=== PATIENT | female | born 1990 | race Caucasian/White ===

== ENCOUNTER 2020-07-01 10:42 | Emergency (ER) | payer OTHER ==
--- NOTE | 2020-07-01 10:53 | ER Document Report ---
ED Medical Screen (RME) - General Chief Complaint: Other Stated Complaint: BODY TEMPERATURE POST SURGERY Time Seen by Provider: 07/01/20 10:49 Mode of Arrival: Wheelchair Information source: Patient Notes: 30-year-old female presents to ED for bilateral labial tear repair at [place]. 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 She states her last menstrual period was June 06 she states at home her temperature was 95.1 we did a oral temperature in the emergency room it was 98.6 vital signs are stable patient is alert oriented respirations regular nonlabored speaking in full sentences. She states she does not smoke drink or use any drugs. She is in a lot of pain sitting up. She states she is not supposed to be sitting at the angle she is at right now due to these surgeries. I have greeted and performed a rapid initial assessment of this patient. A comprehensive ED assessment and evaluation of the patient, analysis of test results and completion of medical decision making process will be conducted by an additional ED providers.
[2020-07-01] MEDS ORDERED: NORMAL SALINE 500 ML IV ONE (10:55)
--- NOTE | 2020-07-01 11:30 | ER Document Report ---
ED General - General Chief Complaint: Post Surgical Pain Stated Complaint: BODY TEMPERATURE POST SURGERY Time Seen by Provider: 07/01/20 10:49 Mode of Arrival: Wheelchair - HPI Notes: 30-year-old female with past medical history to the emergency department with mom with complaints of possible hypothermia, dizziness, lightheadedness that began this morning. She had bilateral labral tears to her hips that were repaired by Dr. Verdugo at [place] on June 26. She states that she has been doing okay. She states that her pain is only minimally controlled by Roxicodone [address] Verdugo wrote for her. She tested negative for COVID- 19 prior to the procedure. She states that her mom has been monitoring her temperature for any fevers. Today she did not have a temperature but her mom measured a temperature of 95.1. The patient also started to feel lightheaded and shaky. Mom does report that she did take her temperature about an hour later and it had come up to 98. They did call the orthopedist about this and was advised to come to the emergency department for further evaluation. - Related Data Allergies/Adverse Reactions: hydromorphone [From Dilaudid] Allergy (Verified 07/01/20 13:14) Past Medical History - General Information source: Patient - Social History Smoking Status: Never Smoker Family History: Reviewed & Not Pertinent Past Surgical History: Reports: Hx Orthopedic Surgery Review of Systems - Review of Systems Constitutional: denies: Chills, Fever EENT: No symptoms reported Cardiovascular: Dizziness, Lightheaded. denies: Chest pain, Palpitations Respiratory: denies: Cough, Short of breath Gastrointestinal: denies: Abdominal pain, Diarrhea, Nausea, Vomiting Genitourinary: No symptoms reported Female Genitourinary: No symptoms reported Musculoskeletal: See HPI, Joint pain Skin: No symptoms reported Neurological/Psychological: No symptoms reported -: Yes All other systems reviewed and negative Physical Exam - Vital signs Vitals: Temp Pulse Resp BP Pulse Ox 98.6 F 121 H 20 136/73 H 100 07/01/20 10:47 07/01/20 10:47 07/01/20 10:47 07/01/20 10:47 07/01/20 10:47 Interpretation: Normal - Notes Notes: PHYSICAL EXAMINATION: GENERAL: Well-appearing, well-nourished and in moderate pain distress; she appears uncomfortable on the stretcher; noted tachycardia upon arrival HEAD: Atraumatic, normocephalic. EYES: Pupils equal round and reactive to light, extraocular movements intact, sclera anicteric, conjunctiva are normal. ENT: nares patent, oropharynx clear without exudates. Moist mucous membranes. NECK: Normal range of motion, supple without lymphadenopathy LUNGS: Breath sounds clear to auscultation bilaterally and equal. No wheezes rales or rhonchi. HEART: Regular rate and rhythm without murmurs ABDOMEN: Soft, nontender, normoactive bowel sounds. No guarding, no rebound. No masses appreciated. EXTREMITIES: There is tenderness to palpation to bilateral hips. There are incisions laterally on bilateral hips. Incisions appear to be healing well. There is some mild erythema around 2 incisions on the left hip but there is no purulent drainage. Nontender to palpation over bilateral knees, ankles. DP pulses are intact and equal. Cap refill is less than 2 seconds. Patient is on restriction for weightbearing because of her labral repairs. She is only to be flatfoot with 20% weightbearing. NEUROLOGICAL: No focal neurological deficits. Moves all extremities spontaneously and on command. PSYCH: Normal mood, normal affect. SKIN: Warm, Dry, normal turgor, no rashes or lesions noted. Course - Re-evaluation Re-evalutation: 07/01/20 Discussed with the patient plan for pain control. She thinks that perioperatively she may have had some Dilaudid and did okay with it. We will p dionicio to give half a milligram and see how she does. About 5 minutes after patient received Dilaudid IV, she called the nurse and states that she felt like she was short of breath and could not breathe. Her heart rate went up to 140 and RN thought that perhaps she was having an anxiety attack. She denies any throat closing or rash or itching. She was placed on oxygen. And she was able to calm down. I rounded on her she was still feeling like she had some chest heaviness. On auscultation she did not have any wheezing. Her tongue is not swollen and she has no hives. Nonetheless, went ahead and gave her 12.5 mg of Benadryl. The Dilaudid did certainly make her drowsy. Try to assess if Dilaudid was truly the medicine that she got perioperatively. Mom had called her but could not remember what she was given. We will continue to monitor Rounded on patient, she is significantly improved and feels better after Benadryl. Again no wheezing and she feels like her chest is no longer tight. There is no hives, facial swelling, lip swelling, tongue swelling. She has r eassuring lab work. Her heart rate has actually improved significantly since arrival despite her reaction to the Dilaudid. Now her heart rate is in the 80s. She does not have a white blood count. She does not have an elevated lactic acid. Her other blood work is also very reassuring. I did offer to x-ray the patient but she declined x-rays today. Plan will be to call and speak with Dr. Verdugo office. Is possible that her thermometer was not reading temperature correctly. And I have advised mom to get a new one. Spoke with Aliya, Dr. Verdugo animal trainer supervisor. She knows this patient well. I reviewed with her all of the lab results, patient's course here including her reaction to Dilaudid which we have now listed as an allergy for the patient. Advised that the wounds look pretty good except for a little bit of pinkness around the left lateral side wounds. Also advised that her heart rate and vital signs had improved. Also advised that she was never hypothermic here. Advised that her oxycodone has not been controlling her pain too much. Aliya states that they have put the patient on losartan. There is research to suggest that losartan will decrease scar tissue from forming after orthopedic procedures. It is possible that the patient actually had her symptoms of lightheadedness and dizziness because the losartan decreased her blood pressure. Of note her mom does state that she gave the patient both her losartan and Roxicodone together. This certainly could have made her blood pressure lower. We will plan on having mom give the losartan at least 2 hours after giving her oxycodone. We will encourage the patient to stop the losartan if she continues to feel lightheaded. Aliya will update Dr. Verdugo. I discussed this conversation with the patient and her . They agree with the plan. I have advised them about the losartan. Encouraged him to return if worse. They agree with the plan. - Vital Signs Vital signs: Temp Pulse Resp BP Pulse Ox 98.1 F 85 18 109/65 98 07/01/20 14:48 07/01/20 14:48 07/01/20 14:48 07/01/20 14:48 07/01/20 14:48 - Laboratory Results Result Diagrams: 07/01/20 11:51 07/01/20 11:51 Laboratory Results Interpreted: 07/01/20 07/01/20 07/01/20 11:51 11:51 11:51 Lymph % (Auto) 11.9 L Seg Neutrophils % 78.7 H Lactic Acid 0.6 L AST 46 H ALT 45 H Albumin 3.4 L 07/01/20 14:16 Lymph % (Auto) Seg Neutrophils % Lactic Acid 0.6 L AST ALT Albumin Critical Laboratory Results Reviewed: No Critical Results - Radiology Results Critical Radiology Results Reviewed: No Critical Results - EKG Interpretation by Me Additional EKG results interpreted by me: 07/01/20 Rate: 88 Rhythm: Sinus Interpretation: No STEMI; nonspecific T wave changes in inferior leads. There is no comparison. Discharge - Discharge Clinical Impression: Post-op pain, Dizziness Condition: Stable Disposition: HOME, SELF-CARE Instructions: Dizziness (OM) Additional Instructions: Please follow-up with Dr. Verdugo without fail. Return if you have worsening symptoms. Today your lab work looked really good. Your temperature was 98.6. You had improvement of your heart rate while you are here. Dr. Pop's office was called. It is possible that the losartan and the Roxicodone are interacting and giving you some low blood pressure. Please space them out in their dosing. When you take your losartan please make sure it is about 2 hours after you take your oxycodone. If you continue to have dizziness with the losartan and [place] codon please stop the losartan completely. Remember to take your oxycodone on time and remember that you can take 1-2 Zanaflex as needed 3 times a day. Monitor for any fevers. Please get a new from monitor to make sure that the the rmometer that you are using is it breaking down on you.
[2020-07-01] MEDS ORDERED: HYDROMORPHONE HCL INJ/PF 2 MG/ML AMPULE IV ONE (11:59)
[2020-07-01] MEDS ORDERED: ONDANSETRON HCL INJ/PF 4 MG/2 ML SDV IV ONE (11:59)
--- NOTE | 2020-07-01 12:02 | EKG REPORT ---
SEVERITY:- BORDERLINE ECG - SINUS RHYTHM NONSPECIFIC ST-T CHANGES- INFERIOR LEADS : Confirmed by: Fernandez Mohr MD 01-Jul-2020 12:01:20
[2020-07-01 12:20] LABS: ABSOLUTE EOSINOPHILS # (AUTO) 0.2 10^3/uL (0.0-0.6); ABSOLUTE MONOCYTES (AUTO) 0.6 10^3/uL (0.1-1.4); ABSOLUTE NEUT (AUTO) 6.7 10^3/uL (1.7-8.2); BASOPHILS % (AUTO) 0.2 % (0-2); EOSINOPHILS % (AUTO) 2.7 % (0-6); HEMATOCRIT 38.8 % (36.0-47.0); HEMOGLOBIN 13.2 g/dL (12.0-15.5); LYMPHOCYTES % (AUTO) 11.9 % (13-45); MEAN CORPUSCULAR HEMOGLOBIN 27.8 pg (27.0-33.4); MEAN CORPUSCULAR VOLUME 82 fl (80-97); MONOCYTES % (AUTO) 6.5 % (3-13); PLATELET COUNT 205 10^3/uL (150-450); RED BLOOD COUNT 4.76 10^6/uL (3.72-5.28); RED CELL DISTRIBUTION WIDTH 13.2 % (11.5-14.0); SEGMENTED NEUTROPHILS % (AUTO) 78.7 % (42-78); TOTAL CELLS COUNTED % (AUTO) 100 %; WHITE BLOOD COUNT 8.5 10^3/uL (4.0-10.5)
[2020-07-01 12:21] LABS: VENOUS BLOOD HCO3 29.2 mmol/L (20-32); VENOUS BLOOD PCO2 50.6 mmHg (35-63); VENOUS BLOOD PH 7.38 (7.30-7.42)
[2020-07-01 12:22] LABS: INTERNATIONAL RATION (INR) 0.97; PROTHROMBIN TIME 13.1 SEC (11.4-15.4)
[2020-07-01] MEDS ORDERED: DIPHENHYDRAMINE HCL 50 MG/ML VIAL IV ONE (12:42)
[2020-07-01 12:45] LABS: ALBUMIN 3.4 g/dL (3.5-5.0); ALKALINE PHOSPHATASE 66 U/L (38-126); ASPARTATE AMINO TRANSFERASE 46 U/L (14-36); BLOOD UREA NITROGEN 11 mg/dL (7-20); CALCIUM 9.5 mg/dL (8.4-10.2); GLUCOSE 104 mg/dL (75-110); POTASSIUM 4.3 mmol/L (3.6-5.0); TOTAL PROTEIN 6.4 g/dL (6.3-8.2)
[2020-07-01 12:52] LABS: ANION GAP 5 (5-19); CARBON DIOXIDE 30 mmol/L (22-30); CHLORIDE 103 mmol/L (98-107)
[2020-07-01 14:53] VITALS: BP 109/65
== END 2020-07-01 14:58 | disposition home or self-care (01) ==
LOC: ER 10:42
DX: G89.18 Other acute postprocedural pain (principal); R42 Dizziness and giddiness; R09.89 Other specified symptoms and signs involving the circulatory and respiratory systems; T40.2X5A Adverse effect of other opioids, initial encounter; Y92.239 Unspecified place in hospital as the place of occurrence of the external cause; Z88.6 Allergy status to analgesic agent; Z88.5 Allergy status to narcotic agent
CPT/HCPCS: 93005; 99284; 96374; 96375; 36415; 87040; 84702; 83605; 85025; 85610; 80053; 82803; 93010; J1200; J1170; J2405; J7040